=== PATIENT | female | born 1960 | race Caucasian/White ===

== ENCOUNTER 2022-11-22 07:12 | Emergency (ER) | payer OTHER, MEDICAID ==
[~2022-11-22] VITALS: Wt 143.8 kg
[2022-11-22] MEDS ORDERED: Percocet 325 MG1 TAB PO (08:21)
== END 2022-11-22 10:45 | disposition short-term general hospital (02) ==
LOC: ED 07:12
DX: S52.092A Other fracture of upper end of left ulna, initial encounter for closed fracture (principal); S22.41XA Multiple fractures of ribs, right side, initial encounter for closed fracture; S86.811A Strain of other muscle(s) and tendon(s) at lower leg level, right leg, initial encounter; S20.211A Contusion of right front wall of thorax, initial encounter; J45.909 Unspecified asthma, uncomplicated; F31.9 Bipolar disorder, unspecified; G43.909 Migraine, unspecified, not intractable, without status migrainosus; K21.9 Gastro-esophageal reflux disease without esophagitis; Z96.651 Presence of right artificial knee joint; W01.0XXA Fall on same level from slipping, tripping and stumbling without subsequent striking against object, initial encounter; Y93.89 Activity, other specified; Y92.009 Unspecified place in unspecified non-institutional (private) residence as the place of occurrence of the external cause; Y99.8 Other external cause status

== ENCOUNTER 2022-12-15 10:11 | Emergency (ER) | payer OTHER, MEDICAID ==
[~2022-12-15] VITALS: Wt 129.3 kg
[~2022-12-15 10:11] MED LIST: Percocet 325 MG1 TAB PO
[2022-12-15] MEDS ORDERED: BROVANA15 MCG/2 M INH (10:42)
[2022-12-15] MEDS ORDERED: AMITRIPTYLINE50 MG PO (10:42)
[2022-12-15] MEDS ORDERED: BUMETANIDE0.5 MG PO (10:45)
[2022-12-15] MEDS ORDERED: COLACE100 MG PO (10:45)
[2022-12-15] MEDS ORDERED: Ipratropium Brom3 ML INH (10:46)
[2022-12-15] MEDS ORDERED: KLONOPIN0.5 MG PO (10:46)
[2022-12-15] MEDS ORDERED: FLONASE ALLERG9.9 ML NAS (10:46)
[2022-12-15] MEDS ORDERED: LIPITOR20 MG PO (10:47)
[2022-12-15] MEDS ORDERED: LATU120T PO (10:47)
[2022-12-15] MEDS ORDERED: LITHIUM CARBON150 MG PO (10:48)
[2022-12-15] MEDS ORDERED: MIRALAX119 GM PO (10:48)
[2022-12-15] MEDS ORDERED: NICODERM CQ1 EAC1 T (10:49)
[2022-12-15] MEDS ORDERED: PRAZOSIN HCL2 MG PO (10:50)
[2022-12-15] MEDS ORDERED: PREGABALIN200 MG PO (10:50)
[2022-12-15] MEDS ORDERED: PULMICORT RES0.25 M1 INH (10:51)
[2022-12-15] MEDS ORDERED: PROVENTIL HFA6.7 GM INH (10:51)
[2022-12-15] MEDS ORDERED: SINGULAIR10 M1 PO (10:52)
[2022-12-15] MEDS ORDERED: TRICOR145 M1 PO (10:52)
[2022-12-15] MEDS ORDERED: REQUIP2 MG PO (10:52)
[2022-12-15 10:58] LABS: BASO % 0.1 % (0.0-1.0); EOS # 0.1 10*3/uL (0.0-0.4); EOS % 0.4 % (1.0-4.0); HEMATOCRIT 43.7 % (37.0-47.0); LYMPH # 1.2 10*3/uL (1.3-4.4); LYMPH % 7.4 % (27.0-41.0); MEAN CORPUSCULAR HGB 26.5 pg (27.0-31.0); MEAN CORPUSCULAR HGB CONC 31.1 g/dl (33.0-37.0); MEAN PLATELET VOLUME 10.8 fl (9.6-12.3); MONO # 0.8 10*3/uL (0.1-1.0); MONO % 4.9 % (3.0-9.0); NEUT # 14.4 10*3/uL (2.3-7.9); NEUT % 86.7 % (47.0-73.0); PLATELET COUNT AUTOMATED 327 10*3/uL (130-400); RED BLOOD COUNT 5.14 10*6/uL (4.10-5.10); WHITE BLOOD COUNT 16.6 10*3/uL (4.8-10.8)
[2022-12-15 11:07] LABS: INTERNATIONAL NORM RATIO 1.2 (2.0-3.5)
[2022-12-15 11:17] LABS: POTASSIUM 3.4 mmol/L (3.4-5.1); TOTAL PROTEIN 6.8 gm/dL (6.0-8.0)
== END 2022-12-15 12:01 | disposition short-term general hospital (02) ==
LOC: ED 10:11
PROVIDERS: Emergency Medicine
DX: J44.1 Chronic obstructive pulmonary disease with (acute) exacerbation (principal); J18.9 Pneumonia, unspecified organism; R09.02 Hypoxemia; I26.99 Other pulmonary embolism without acute cor pulmonale; F31.9 Bipolar disorder, unspecified; G43.909 Migraine, unspecified, not intractable, without status migrainosus; K21.9 Gastro-esophageal reflux disease without esophagitis; Z88.8 Allergy status to other drugs, medicaments and biological substances